=== PATIENT | female | born 1990 | race Caucasian/White ===

== ENCOUNTER 2018-05-07 12:49 | Emergency (ER) | payer OTHER ==
[2018-05-07] MEDS: METHYLPREDNISOLONE 125 MG INJ IM (15:49)
[2018-05-07] MEDS: ALBUTEROL 0.083% (NEB) 2.5 MG/3 ML AMP HHN (16:00)
[2018-05-07] MEDS: IPRATROPIUM (NEB) 0.5 MG/2.5 ML AMP HHN (16:00)
== END 2018-05-07 16:54 | disposition home or self-care (01) ==
LOC: FTE 16:54
DX: J45.901 Unspecified asthma with (acute) exacerbation (principal)
CPT/HCPCS: 94644; 96372; 99284-25

== ENCOUNTER 2018-05-20 00:17 | Emergency (ER) | payer OTHER ==
[2018-05-20] MEDS: DEXAMETHASONE 10 MG/ML 1 ML INJ IM (00:56)
[2018-05-20] MEDS: IPRATROPIUM (NEB) 0.5 MG/2.5 ML AMP HHN (01:01)
[2018-05-20] MEDS: ALBUTEROL 0.083% (NEB) 2.5 MG/3 ML AMP HHN (01:01)
== END 2018-05-20 01:48 | disposition home or self-care (01) ==
LOC: FTE 00:17
DX: J45.901 Unspecified asthma with (acute) exacerbation (principal)
CPT/HCPCS: 94664; 96372; 99284-25

== ENCOUNTER 2018-08-24 16:54 | Emergency (ER) | payer SELFPAY, OTHER | END 2018-08-24 17:15 | disposition left against medical advice (07) | LOC: FTE 16:54 | DX: Z53.21 Procedure and treatment not carried out due to patient leaving prior to being seen by health care provider (principal) ==